=== PATIENT | female | born 2000 | race Caucasian/White ===

== ENCOUNTER → 2019-01-13 | Outpatient (CLI) | payer OTHER ==
--- NOTE | 2019-01-13 13:22 | Diagnostic Imaging Report ---
INDICATION: Cough. PA and lateral chest obtained at 1:10 p.m. FINDINGS: Heart and mediastinal silhouette are normal in appearance. The lungs are clear. There is no pneumothorax or pleural fluid. There is mild scoliotic change. IMPRESSION: No acute process in the chest. Dictated by: Dictated on workstation # [id number]
== END ==
LOC: RAD 12:59
PROVIDERS: ATTEND Nurse Practitioner Family
DX: R05 Cough (principal)
CPT/HCPCS: 71046

== ENCOUNTER → 2019-03-09 | Outpatient (CLI) | payer OTHER ==
--- NOTE | 2019-03-09 09:14 | Diagnostic Imaging Report ---
PROCEDURE: CT sinuses without contrast. TECHNIQUE: Multiple contiguous axial images were obtained through the sinuses without the use of intravenous contrast. Coronal and sagittal reformations were then performed. Auto Exposure Controls were utilized during the CT exam to meet ALARA standards for radiation dose reduction. INDICATION: Long-standing sinus infection despite antibiotic. FINDINGS: The partially visualized mastoid air cells and middle ear cavities are clear. The nasal septum is midline and unremarkable. The turbinates are unremarkable. The maxillary sinuses are clear and the maxillary sinus ostia is patent. The sphenoid sinus, ethmoid air cells, and frontal sinuses are clear. No membrane thickening or air/fluid levels. No ostial obstruction. No bony destruction. IMPRESSION: Unremarkable CT appearance of the paranasal sinuses. Dictated by: Dictated on workstation # [id number]
== END ==
LOC: RAD 08:34
PROVIDERS: ATTEND Otolaryngology Otolaryngology/Facial Plastic Surgery
DX: J32.9 Chronic sinusitis, unspecified (principal)
CPT/HCPCS: 70486